=== PATIENT | male | born 1985 | race Caucasian/White ===

== ENCOUNTER 2023-07-19 20:34 | Emergency (ER) | payer OTHER ==
[~2023-07-19] VITALS: Ht 172.7 cm; Wt 95.3 kg
[2023-07-19 20:43] VITALS: BP 129/74; TEMP 89; O2SAT 99
[2023-07-19] MEDS ORDERED: KETO10TA2 PO (22:15)
[2023-07-19] MEDS ORDERED: HYDR-4209 PO (22:15)
== END 2023-07-19 22:23 | disposition home or self-care (01) ==
LOC: ER 20:42
DX: M79.671 Pain in right foot (principal)
CPT/HCPCS: 73610-TC; 73630-TC